=== PATIENT | male | born 1955 | race Caucasian/White ===

== ENCOUNTER 2017-10-25 16:31 | Emergency (ER) ==
[2017-10-25 16:42] VITALS: BP 134/53; TEMP 99.3; BMI 25.6
--- NOTE | 2017-10-25 17:56 | ED.PDOC ---
General ED Provider: Dr. ANA SCOTT Chief Complaint: Extremity Pain/Injury Stated Complaint: Bleeding from Rt Leg/weedeating and some object struck his leg -bleeding for 30 minutes before control. NOT sure what struck him. Wound very superficial and bleeding now controlled Time Seen by Physician: 17:40 Mode of Arrival: Wheelchair Information Source: Patient Exam Limitations: No limitations Primary Care Provider: ANA SHARMA Nursing and Triage Documentation Reviewed and Agree: Yes Does patient meet sepsis criteria?: No System Inflammatory Response Syndrome: Not Applicable Sepsis Protocol: For patient's 13 years and over: Temp is 96.8 and below OR 101 and greater Pulse >90 BPM Resp >20/minute Acutely Altered Mental Status Are patient's symptoms suggestive of a new infection, such as: -Pneumonia -Skin, Soft Tissue -Endocarditis -UTI -Bone, Joint Infection -Implantable Device -Acute Abdominal Infection -Wound Infection -Meningitis -Blood Stream Catheter Infection -Unknown Trauma/Injury Complaint Exam - Trauma Complaint/Exam Location of Pain or Injury: Reports: LLE Mechanism of Injury: Reports: Blunt trauma, Other (flying debris) Onset/Duration: 1 hr Symptoms Are: Still present Timing of Treatment: Immediate Initial Severity: Moderate Current Severity: Mild Character: Reports: Sharp Aggravating: Reports: None Alleviating: Reports: Rest Associated Signs and Symptoms: Denies: LOC, Confusion, Memory loss, Lethargy, Vomiting, Bleeding, Bruising, Swelling, Extremity disuse, Painful respiration, Hoarseness, Dysphagia, Hemoptysis, Significant blood loss Related History: Denies: Similar episode Penetrating Injury Risk Factors: Reports: Projectile Skin Findings: Present: Tenderness, Laceration (superficial [id number] mm) Differential Diagnoses: Hematoma, Laceration Review of Systems - Review Of Systems Constitutional: Reports: No symptoms Eyes: Reports: No symptoms Ears, Nose, Mouth, Throat: Reports: No symptoms Respiratory: Reports: No symptoms Cardiac: Reports: No symptoms GI: Reports: No symptoms : Reports: No symptoms Musculoskeletal: Reports: No symptoms Skin: Reports: No symptoms, Other (superficial puncture-laceration) Neurological: Reports: No symptoms Endocrine: Reports: No symptoms Hematologic/Lymphatic: Reports: No symptoms All Other Systems: Reviewed and Negative Past Medical History - Past Medical History Previously Healthy: Yes Endocrine: Reports: None Cardiovascular: Reports: None Respiratory: Reports: None Hematological: Reports: None Gastrointestinal: Reports: None Genitourinary: Reports: None Neuro/Psych: Reports: None Musculoskeletal: Reports: None Cancer: Reports: None - Surgical History General Surgical History: Reports: None - Family History Family History: Reports: None - Social History Smoking Status: Never smoker Hx Substance Use: No Alcohol Screening: Occasionally Physical Exam - Physical Exam Appearance: Well-appearing, No pain distress, Well-nourished Eyes: MICHAEL, EOMI, Conjunctiva clear ENT: Ears normal, Nose normal, Oropharynx normal Respiratory: Airway patent, Breath sounds clear, Breath sounds equal, Respirations nonlabored Cardiovascular: RRR, Pulses normal, No rub, No murmur GI/: Soft, Nontender, No masses, Bowel sounds normal, No Organomegaly Musculoskeletal: Normal strength, ROM intact, No edema, No calf tenderness Skin: Warm (diffuse dried blood on both legs), Dry, Normal color Neurological: Sensation intact, Motor intact, Reflexes intact, Cranial nerves intact, Alert, Oriented Psychiatric: Affect appropriate, Mood appropriate Re-Evaluation - Re-Evaluation Time of Re-Evaluation: 19:00 Status: Improved Vital Signs Stable: Yes Appearance: NAD Lungs: Clear Skin: Warm and Dry Neuro: Alert and Oriented X3 CV: RRR Additional Comments: site of bleeding controlled Critical Care Note - Critical Care Note Total Time (mins): 0 Course - Course Orders, Labs, Meds: Orders Category Date Time Status TIBIA/FIBULA, RIGHT 2 VIEW Stat RADS 10/25/17 17:51 Completed Vital Signs: Temp Pulse Resp BP Pulse Ox 10/25/17 16:33 99.3 F 88 18 134/53 L 95 Departure - Departure Time of Disposition: 19:30 Disposition: HOME SELF-CARE Discharge Problem: Puncture wound of leg not thigh, right Instructions: Soft Tissue Foreign Body (ED), Puncture Wound (ED) Condition: Good Pt referred to PMD for follow-up: Yes (1 week) IPMP verified?: No Additional Instructions: Small density as describe on Xray report - May some point /may need removal if migrates superficially Take antibiotics as directed Take Ibuprofen as needed for pain See PCP in 1 week FOllow wound care instructions Prescriptions: Cephalexin [Keflex] 500 mg PO BID #14 capsule Allergies/Adverse Reactions: Allergies No Known Allergies Allergy (Verified 10/25/17 16:39) Home Medications: Ambulatory Orders Amlodipine Besylate [Norvasc] 5 mg PO BEDTIME 02/22/15 Buspirone HCl 5 mg PO BEDTIME 04/07/14 Cephalexin [Keflex] 500 mg PO BID #14 capsule 10/25/17 Disposition Discussed With: Patient, Family Additional Comments Additional Comments: Reviewd results of xray rt leg-appearance superficial small radiopacque objection in soft tissues medial aspect rt proximal leg. Exam completed and no palpable lesion identifies. Options treatement discussed including exploration area of injury surgically to attempt to identify object vs risk of additional injury and not locating item. Pt prefers to avoid additional treatment and to leave wound as it. Explained item my attempt to surface then treament may be needed.
--- NOTE | 2017-10-25 18:23 | DI ---
EXAM: Right lower leg. Two-view HISTORY: For an object stroke leg while weed eating COMPARISON: None FINDINGS: No fracture or dislocation. 3 mm density in the medial soft tissues of the proximal lower leg may represent a nonspecific soft tissue calcification, though small foreign body cannot be exclu ded if patient had penetrating trauma in this region. Recommend clinical correlation. Small calcanea l spur. IMPERSSION: No fracture or dislocation. 3 mm density in the medial soft tissues of the proximal lo wer leg may represent a nonspecific soft tissue calcification, though small foreign body cannot be ex cluded if patient had penetrating trauma in this region. Recommend clinical correlation.
== END 2017-10-25 19:38 | disposition home or self-care (01) ==
LOC: ED 16:31
DX: S81.841A Puncture wound with foreign body, right lower leg, initial encounter (principal); W26.9XXA Contact with unspecified sharp object(s), initial encounter
CPT/HCPCS: 99283